=== PATIENT | male | born 1995 | race Caucasian/White ===

== ENCOUNTER 2024-07-03 21:34 | Emergency (ER) | payer OTHER ==
[~2024-07-03] VITALS: Ht 182.9 cm; Wt 146.5 kg
[2024-07-03 22:10] VITALS: BP_SYST 139; PULSE 85; RESP 18; TEMP 99.2; O2SAT 97
[2024-07-03] MEDS ORDERED: IBUP-1971 PO (22:52)
[2024-07-03] MEDS: KETOROLAC TROMETHAMINE 60 MG/2 ML VIAL IM ONE (23:41)
[2024-07-04 00:15] VITALS: BP_SYST 146; PULSE 94; RESP 16; TEMP 97.6; O2SAT 95
== END 2024-07-04 00:15 | disposition home or self-care (01) ==
LOC: SED 21:34
DX: R07.89 Other chest pain (principal)
CPT/HCPCS: 99283; 71045; 93005; 96372; J1885